=== PATIENT | female | born 1995 | race Caucasian/White ===

== ENCOUNTER 2017-08-03 22:46 | Emergency (ER) | payer SELFPAY, BC, OTHER ==
[2017-08-03] MEDS: KETOROLAC 30 MG INJ IV ×2 (23:41→23:45)
[2017-08-03] MEDS: KETOROLAC 60 MG INJ IM ×2 (23:42→23:45)
[2017-08-04] MEDS: morphine 4 MG/ML VIAL IV (00:21)
[2017-08-04] MEDS: ONDANSETRON 4 MG INJ IV (00:21)
[2017-08-04] MEDS: HYDROmorphONE 0.5 MG/0.5 ML SYG IV (01:34)
[2017-08-04] MEDS ORDERED: ACETAMINOPHEN 500 MG TAB (03:04)
== END 2017-08-04 02:43 | disposition home or self-care (01) ==
LOC: E/R 22:46
DX: S30.0XXA Contusion of lower back and pelvis, initial encounter (principal); S80.02XA Contusion of left knee, initial encounter; S50.02XA Contusion of left elbow, initial encounter; S60.212A Contusion of left wrist, initial encounter; R10.2 Pelvic and perineal pain; W01.0XXA Fall on same level from slipping, tripping and stumbling without subsequent striking against object, initial encounter; Y92.9 Unspecified place or not applicable
CPT/HCPCS: 72100; 73080-LT; 73110-LT; 73562; 84703; 96374; 96375; 99284-25